=== PATIENT | female | born 2000 | race Caucasian/White ===

== ENCOUNTER → 2021-06-07 | Emergency (ER) | payer MEDICAID ==
[~2021-06-07] VITALS: Ht 154.9 cm; Wt 50.0 kg
[~2021-06-07] MED LIST: ACETAMINOPHEN 325 MG TABLET PO ONE
[2021-06-07 22:09] VITALS: BP 111/64
== END | disposition home or self-care (01) ==
LOC: EMS 17:16
DX: S06.0X9A Concussion with loss of consciousness of unspecified duration, initial encounter (principal); X58.XXXA Exposure to other specified factors, initial encounter; Y93.89 Activity, other specified; Y92.89 Other specified places as the place of occurrence of the external cause; Y99.8 Other external cause status
CPT/HCPCS: 70450; 72125; 99285